=== PATIENT | male | born 1965 | race Caucasian/White ===

== ENCOUNTER 2019-01-06 16:37 | Outpatient (CLI) | payer OTHER ==
--- NOTE | 2019-01-06 22:47 | Ultrasound Report ---
PROCEDURE: US TESTICULAR DOPPLER COMP TECHNIQUE: Real-time alejandra-scale and color flow Doppler sonography in multiple planes of the scrotum, testicles, and epididymes was performed. Velocity spectral waveform analysis and color Doppler imagi ng of the arterial inflow and venous outflow of the testicles was performed with image documentation. HISTORY: LT SCROTAL MASS;EPIDIDYMITIS COMPARISONS: None . FINDINGS: RIGHT TESTICLE: Size: 4.8 x 2.4 x 3.2 cm . Appearance: Normal size and echotexture . Arterial blood flow: Normal spectral waveforms, flow velocities and color flow images.. Venous blood flow: Normal spectral waveforms and color flow images. Right epididymis: Normal size and echotexture . Hydrocele: None significant . LEFT TESTICLE Size: 4.6 x 2.2 x 3.2 cm . Appearance: Normal size and echotexture . Arterial blood flow: Normal spectral waveforms, flow velocities and color flow images.. Venous blood flow: Normal spectral waveforms and color flow images. Left epididymis: There is a heterogeneous ill-defined lesion measuring 2.0 x 2.7 x 2.8 cm involving t he tail of epididymis with hypervascularity. Hydrocele: Mild degree hydrocele is noted . IMPRESSION: Findings most likely represent acute left epididymitis with mild degree left hydrocele. This document is electronically signed by Angelito Osuna MD., January 06 2019 10:44:53 PM ET
== END 2019-01-06 16:38 | disposition home or self-care (01) ==
LOC: US 16:37
PROVIDERS: ATTEND Urology
DX: N45.1 Epididymitis (principal); N43.3 Hydrocele, unspecified
CPT/HCPCS: 93975